=== PATIENT | male | born 1955 | race Caucasian/White ===

== ENCOUNTER 2016-04-06 16:23 | Emergency (ER) | payer OTHER ==
[~2016-04-06] VITALS: Ht 188 cm; Wt 117.9 kg
--- NOTE | ~2016-04-06 | EKG ---
[place] [address] [facility] [place] [address] ELECTROCARDIOGRAM REPORT Name: ALEXANDRIA WANG Room #: [facility]#: [id number] Admission: 04/06/16 Attend Phys: Discharge: 04/06/16 Date of : 59 Report #: [id number] THIS REPORT FOR: //name// [facility] ED Test Date: 2016-04-06 Test Time: 16:42:53 Pat Name: ALEXANDRIA WANG Department: Room: Gender: [employer]: Shira ROSA : 1955 Requested By: Arthur Calderon Order Number: [id number] MD: Mark Zhang Measurements Intervals [place] Rate: 85 P: 73 MT: 154 QRS: 49 QRSD: 95 T: 74 QT: 367 QTc: 437 Interpretive Statements Sinus rhythm Frequent premature ventricular complexes No previous ECG available for comparison Electronically Signed On 04-08-2016 14:04:56 MANAGER SOUND by Mark Zhang [email or web address] <ELECTRONICALLY SIGNED> By: Mark Zhang MD, [facility] 04/08/16 1404 1642 1642 Mark Zhang MD, FACC /EPI
[2016-04-06 17:19] LABS: HEMATOCRIT 47.2 % (42.0-52.0); HEMOGLOBIN 15.7 gm/dL (14.0-18.0); MCHC 33.4 % (28.0-37.0); PLATELET COUNT 258 thou/uL (150-400); RBC 5.62 mil/uL (4.50-6.00); RDW 13.3 % (10.5-14.5)
[2016-04-06 17:20] LABS: MANUAL DIFF YES
[2016-04-06 17:27] LABS: INR 1.6; PROTIME 16.4 Seconds (9.3-11.4)
[2016-04-06 17:28] LABS: CALCIUM 9.2 mg/dL (8.5-10.1); CREATININE 1.2 mg/dL (0.6-1.3); POTASSIUM 4.3 mmol/L (3.5-5.1)
[2016-04-06 17:34] LABS: TOTAL BILIRUBIN 0.5 mg/dL (<0.1-1.0); TOTAL PROTEIN 7.8 g/dL (6.4-8.2)
[2016-04-06 17:36] LABS: TROPONIN-I 0.07 ng/mL (<0.04-0.07)
[2016-04-06 17:40] LABS: ABSOLUTE NEUTROPHILS 5.6 thou/uL (1.4-8.2); TOTAL CELL COUNT 100
[2016-04-06] MEDS ORDERED: DOXYCYCLINE 10100 MG PO (18:21)
[2016-04-06] MEDS ORDERED: PREDNISONE 20 M20 MG PO (18:21)
[2016-04-06] MEDS ORDERED: VENTOLIN HFA 1818 GM INH (18:21)
[2016-04-06 18:39] VITALS: BP 133/75
== END 2016-04-06 18:44 | disposition home or self-care (01) ==
LOC: ER 16:23
PROVIDERS: Emergency Medicine; Physician Assistant
DX: J20.9 Acute bronchitis, unspecified (principal); R04.2 Hemoptysis; J45.909 Unspecified asthma, uncomplicated; Z87.891 Personal history of nicotine dependence; F10.99 Alcohol use, unspecified with unspecified alcohol-induced disorder